=== PATIENT | female | born 1995 | race Caucasian/White ===

== ENCOUNTER 2019-11-13 06:47 | Emergency (ER) | payer BC, SELFPAY ==
[2019-11-13 06:51] VITALS: BP 122/84; PULSE 83; RESP 16; TEMP 37.2; O2SAT 97
--- NOTE | 2019-11-13 06:54 | ED.GENADUL_ITS ---
Discharge Plan Disposition Patient Disposition: HOME Condition: Good Discharge Details Chief Complaint: Orthopedic Clinical Impression: Separation of left acromioclavicular joint Primary Care Provider: Isabela Darby V ED Provider: Eugenio Boyd Cecil Meds and New Rx's Prescriptions: Continued lamotrigine 100 mg tablet 100 mg PO DAILY RF: 0 Discharge Instructions Instructions: Acromioclavicular Separation (ED) Additional Instructions: Wear sling. Gentle range of motion exercises for her shoulder as shown. Ice and ibuprofen for pain and swelling. Follow-up with orthopedics in 2 weeks. Return to ED for increasing pain, numbness, weakness, difficulty breathing. Referrals: [facility] [Provider Group] Medical Decision Making Patient denies being . Has not taken anything for pain. Given ibuprofen here and sent for x-ray of the left clavicle. My review as well as preliminary radiology read suggest AC separation. On reexam this is exactly where patient is tender. There is no fracture. Diagnosis explained to patient. Sling applied. Ibuprofen and ice recommended. Gentle range of motion exercises and follow-up with orthopedics. HPI General Mode of arrival: ambulatory . Date/Time Provider Initiated Documentation: 11/13/19 06:54 . Limitations to Documentation: no limitations . Information obtained by: patient and RN notes reviewed . HPI Narrative: Patient presents to ED with left clavicle pain. Patient fell going upstairs last night. She did not fall down the stairs. She did not strike her head or have loss of consciousness. She has no neck pain. She has no left arm pain just pain in the clavicle area when trying to raise her arm. She has no numbness or weakness. She has no rib pain or shortness of breath. Related Data Home Medications Medication Instructions Recorded Confirmed lamotrigine 100 mg PO DAILY 11/13/19 11/13/19 Allergies Allergy/AdvReac Type Severity Reaction Status Date / Time No Known Allergies Allergy Unverified 11/13/19 06:54 General Stated Complaint: Orthopedic HERIBERTO: 3 Review of Systems Constitutional Constitutional: Denies weakness ENT Ears, Nose, Mouth, and Throat: Denies neck pain Cardiovascular Cardiovascular: Denies dyspnea Respiratory Respiratory: Denies pain on inspiration and Denies dyspnea Musculoskeletal Musculoskeletal: Denies back pain, Denies neck pain, Denies numbness and Denies tingling Neurologic Neurologic: Denies numbness, Denies tingling and Denies weakness [facility] Medical History Depression (Chronic) Orthostatic hypotension Ventricular ectopy Family History Mother Healthy adult on routine physical examination Father Healthy adult on routine physical examination Social History Smoking/Tobacco Use Status: Never Alcohol Intake: never Drug use: Never Do you feel safe at home: Yes Do you feel safe in your relationship?: Yes Exam Narrative Exam Narrative: Vitals: Afebrile with normal vitals and normal room air pulse ox. Const: WDWN female in NAD. HEENT: NC/AT. Normal facial exam. Eyes: Normal conjunctiva and sclera. Neck: Supple. Trachea midline. No c-spine tenderness. Lungs: Normal respiratory effort. No chest wall tenderness. Cor: Good radial pulses. Neuro: A+O x 3. Normal speech, mentation, gait. Cranial nerves II - XII grossly intact. No gross motor or sensory deficit. Ext: No C/C/E. LUE without tenderness or deformity. Decreased ROM due to pain at distal clavicle. No obvious deformity. Tenderness present. Neurovascularly intact distally. Course Vital Signs Vital signs: Vital Signs Temperature 99.0 F 11/13/19 06:51 Pulse 83 11/13/19 06:51 Respiratory Rate 16 11/13/19 06:51 Blood Pressure 122/84 11/13/19 06:51 Pulse Oximetry 97 11/13/19 06:51 Temperature 99.0 F 11/13/19 06:51 Temperature Source Skin 11/13/19 06:51 Pulse 83 11/13/19 06:51 Respiratory Rate 16 11/13/19 06:51 Blood Pressure 122/84 11/13/19 06:51 Pulse Oximetry 97 11/13/19 06:51 Pain Level 7 11/13/19 06:51
[2019-11-13] MEDS: Ibuprofen 600 MG TAB PO (07:08)
--- NOTE | 2019-11-13 07:16 | DI.RAD_ITS ---
EXAM: XR CLAVICLE LT CLINICAL HISTORY: trauma TECHNIQUE: 2D digital imaging was performed. COMPARISON: CR CHEST 2 VIEWS PA,LAT from 02/03/2011 FINDINGS: BONES: No acute fracture is present. No bony destructive lesion is seen. JOINTS: There is mild widening of the AC joint. The glenohumeral joint appears intact. SOFT TISSUE: Normal. IMPRESSION: Mild AC separation.. DATA REPOSITORY: RADIATION DOSE DELIVERED:
--- NOTE | 2019-11-13 07:24 | DI.VRAD_ITS ---
PROCEDURE INFORMATION: Exam: XR Left Clavicle, Complete Exam date and time: 11/13/2019 7:14 AM Age: 23 years old Clinical indication: Injury or trauma; Fall; Initial encounter; Blunt trauma (contusions or hematomas; Shoulder; Left; Injury date: 11/13/19 TECHNIQUE: Imaging protocol: XR Left clavicle complete. Any number of views. COMPARISON: No relevant prior studies available. FINDINGS: Bones/joints: 1 cm AC distance may reflect baseline however may also reflect AC joint separation. Would recommend clinical correlation to assess for AC joint symptoms. Soft tissues: Normal. IMPRESSION: 1 cm AC distance may reflect baseline however may also reflect AC joint separation. Would recommend clinical correlation to assess for AC joint symptoms. Dictated and Authenticated by: Geoff Rm MD. Ordering:NEETU Becker MD
== END 2019-11-13 07:35 | disposition home or self-care (01) ==
PROVIDERS: Emergency Provider Emergency Medicine; PCP Pediatrics
DX: S43.102A Unspecified dislocation of left acromioclavicular joint, initial encounter (principal); W10.8XXA Fall (on) (from) other stairs and steps, initial encounter
CPT/HCPCS: 99283; 73000; L3650

== ENCOUNTER 2019-11-20 12:15 | Outpatient (CLI) | payer BC, SELFPAY ==
--- NOTE | 2019-11-20 11:45 | DI.RAD_ITS ---
EXAM: XR STANDING ALIGNMENT CLINICAL HISTORY: bilateral knee pain TECHNIQUE: COMPARISON: CR XR KNEE LT 3V AP,LAT,MACARENA from 11/20/2019 CR XR KNEE RT 3V AP,LAT,MACARENA from 11/20/2019 FINDINGS: AP standing alignment views were obtained. There is apparent slight valgus angulation knees. Three views the right knee show no significant bony or soft tissue abnormality. Three views of the left knee show no significant bony or soft tissue abnormality. IMPRESSION:
== END 2019-11-20 12:35 ==
PROVIDERS: PCP Pediatrics; Visit Provider Physician Assistant
DX: M25.561 Pain in right knee (principal); M25.562 Pain in left knee; M21.061 Valgus deformity, not elsewhere classified, right knee; M21.062 Valgus deformity, not elsewhere classified, left knee
CPT/HCPCS: 73562; 77073